=== PATIENT | female | born 1935 | race Caucasian/White ===

== ENCOUNTER 2016-09-02 11:28 | Inpatient (IN) | payer OTHER ==
[~2016-09-02] VITALS: Ht 154.9 cm; Wt 76.2 kg
[2016-09-02 11:55] VITALS: BP 199/100
[2016-09-02 12:19] LABS: HEMATOCRIT 33.9 % (37.0-47.0); HEMOGLOBIN 11.1 gm/dL (12.0-15.0); MCH 26.9 pg (26.0-34.0); MCHC 32.9 g/dL (28.0-37.0); MCV 81.6 fL (80.0-100.0); RBC 4.15 mil/uL (4.20-5.00); RDW 15.6 % (10.5-14.5)
[2016-09-02 12:42] LABS: ALBUMIN 3.4 g/dL (3.4-5.0); CALCIUM 9.1 mg/dL (8.5-10.1); CREATININE 1.7 mg/dL (0.6-1.0); TOTAL BILIRUBIN 1.4 mg/dL (<0.1-1.0); TOTAL PROTEIN 7.2 g/dL (6.4-8.2)
[2016-09-02] MEDS ORDERED: HYDROXYZINE HCL25 M1 PO (12:57)
[2016-09-02] MEDS ORDERED: LEVOTHYROXIN0.075 MG PO (12:57)
[2016-09-02] MEDS ORDERED: ATENOLOL 50MG T50 M1 PO (12:57)
[2016-09-02] MEDS ORDERED: CHLORZOXAZONE500 MG PO (12:58)
[2016-09-02] MEDS ORDERED: FUROSEMIDE 20 M20 MG PO (12:59)
[2016-09-02 13:15] VITALS: BP 176/86; BP 181/73
[2016-09-02 13:19] LABS: POTASSIUM 3.5 mmol/L (3.5-5.1)
[2016-09-02 15:55] VITALS: BP 168/80; BP 203/97
[2016-09-02 17:45] VITALS: BP 181/73
[2016-09-02 18:27] LABS: CALCIUM 9.2 mg/dL (8.5-10.1); CREATININE 1.7 mg/dL (0.6-1.0); POTASSIUM 3.5 mmol/L (3.5-5.1)
[2016-09-02 18:29] LABS: ALBUMIN 3.5 g/dL (3.4-5.0); MAGNESIUM 1.5 mg/dL (1.8-2.4); PHOSPHORUS 4.1 mg/dL (2.5-4.9)
[2016-09-02 19:20] VITALS: BP 179/82
[2016-09-02 23:32] VITALS: BP 210/100
[2016-09-03 02:25] VITALS: BP 182/72
[2016-09-03 03:47] LABS: ALBUMIN 3.4 g/dL (3.4-5.0); CALCIUM 9.1 mg/dL (8.5-10.1); CREATININE 1.7 mg/dL (0.6-1.0); PHOSPHORUS 4.2 mg/dL (2.5-4.9)
[2016-09-03 03:51] LABS: POTASSIUM 2.9 mmol/L (3.5-5.1)
[2016-09-03 04:50] VITALS: BP 174/77
[2016-09-03 08:45] VITALS: BP 115/57
[2016-09-03 08:55] LABS: ALBUMIN 3.7 g/dL (3.4-5.0); CALCIUM 9.6 mg/dL (8.5-10.1); CREATININE 1.8 mg/dL (0.6-1.0); PHOSPHORUS 4.4 mg/dL (2.5-4.9); POTASSIUM 3.2 mmol/L (3.5-5.1)
[2016-09-03 12:15] VITALS: BP 154/86
[2016-09-03 16:05] VITALS: BP 151/61
[2016-09-03 19:43] VITALS: BP 143/70
[2016-09-04 03:58] LABS: ALBUMIN 3.2 g/dL (3.4-5.0); CALCIUM 8.7 mg/dL (8.5-10.1); CREATININE 2.2 mg/dL (0.6-1.0); PHOSPHORUS 5.3 mg/dL (2.5-4.9); POTASSIUM 3.2 mmol/L (3.5-5.1)
[2016-09-04 04:00] LABS: MAGNESIUM 1.6 mg/dL (1.8-2.4); POTASSIUM 3.3 mmol/L (3.5-5.1)
[2016-09-04 04:37] VITALS: BP 117/64
[2016-09-04 07:50] VITALS: BP 146/92
[2016-09-04 11:47] LABS: MAGNESIUM 1.8 mg/dL (1.8-2.4)
[2016-09-04 12:15] VITALS: BP 120/64
[2016-09-04 16:45] VITALS: BP 148/78
[2016-09-04 19:59] VITALS: BP 144/70
[2016-09-05 04:04] VITALS: BP 140/72
[2016-09-05 05:37] LABS: ALBUMIN 3.2 g/dL (3.4-5.0); CALCIUM 8.7 mg/dL (8.5-10.1); CREATININE 2.3 mg/dL (0.6-1.0); PHOSPHORUS 5.9 mg/dL (2.5-4.9); POTASSIUM 3.4 mmol/L (3.5-5.1)
[2016-09-05 07:40] VITALS: BP 118/83
[2016-09-05 11:05] VITALS: BP 106/52
[2016-09-05 16:00] VITALS: BP 135/57
[2016-09-05 20:41] VITALS: BP 152/75
[2016-09-06] VITALS (12 sets, daily range): BP systolic 124–160; BP diastolic 52–106
[2016-09-06 03:46] LABS: ALBUMIN 3.1 g/dL (3.4-5.0); CREATININE 1.7 mg/dL (0.6-1.0); PHOSPHORUS 4.8 mg/dL (2.5-4.9); POTASSIUM 4.2 mmol/L (3.5-5.1)
[2016-09-06] MEDS ORDERED: BYSTOLIC 5 MG5 M1 PO (07:16)
[2016-09-06] MEDS ORDERED: ALDACTONE25 MG PO (07:17)
[2016-09-06] MEDS ORDERED: AMLODIPINE BESY10 MG PO (07:17)
[2016-09-06] MEDS ORDERED: COZAAR 50 MG TA50 M1 PO (07:17)
[2016-09-07 03:35] VITALS: BP 143/57
[2016-09-07] MEDS ORDERED: CARVEDILOL25 MG PO (07:42)
[2016-09-07 07:55] VITALS: BP 157/80
[2016-09-07 08:03] LABS: ALBUMIN 3.5 g/dL (3.4-5.0); CALCIUM 9.1 mg/dL (8.5-10.1); CREATININE 1.6 mg/dL (0.6-1.0); PHOSPHORUS 4.7 mg/dL (2.5-4.9); POTASSIUM 4.5 mmol/L (3.5-5.1)
[2016-09-07 09:05] VITALS: BP 157/80
== END 2016-09-07 10:25 | disposition home or self-care (01) | DRG 286 ==
LOC: 2N 11:28
PROVIDERS: Hospitalist; Internal Medicine Cardiovascular Disease; Nurse Practitioner Adult Health
PROC: 4A023N8 Measurement of Cardiac Sampling and Pressure, Bilateral, Percutaneous Approach (ICD-10-PCS; principal; 2016-09-06)
PROC: B2111ZZ Fluoroscopy of Multiple Coronary Arteries using Low Osmolar Contrast (ICD-10-PCS; principal; 2016-09-06)
DX: I13.0 Hypertensive heart and chronic kidney disease with heart failure and stage 1 through stage 4 chronic kidney disease, or unspecified chronic kidney disease (principal); I50.21 Acute systolic (congestive) heart failure; N17.9 Acute kidney failure, unspecified; I42.9 Cardiomyopathy, unspecified; E03.9 Hypothyroidism, unspecified; N18.9 Chronic kidney disease, unspecified; E87.6 Hypokalemia; Z79.899 Other long term (current) drug therapy; Z88.1 Allergy status to other antibiotic agents; Z88.2 Allergy status to sulfonamides; Z87.891 Personal history of nicotine dependence
CPT/HCPCS: 10081; 10797

== ENCOUNTER → 2019-07-31 | Outpatient (CLI) | payer OTHER ==
[~2019-07-31] MED LIST: ALDACTONE25 MG PO; AMLODIPINE BESY10 MG PO; ATENOLOL 50MG T50 M1 PO; BYSTOLIC 5 MG5 M1 PO; CARVEDILOL25 MG PO; CHLORZOXAZONE500 MG PO; COZAAR 50 MG TA50 M1 PO; FUROSEMIDE 20 M20 MG PO; HYDROXYZINE HCL25 M1 PO; LEVOTHYROXIN0.075 MG PO
== END ==
LOC: SJCVCIMAG 12:44
PROVIDERS: ATTEND Internal Medicine Cardiovascular Disease
DX: I08.1 Rheumatic disorders of both mitral and tricuspid valves (principal); I44.7 Left bundle-branch block, unspecified; R94.31 Abnormal electrocardiogram [ECG] [EKG]; I13.0 Hypertensive heart and chronic kidney disease with heart failure and stage 1 through stage 4 chronic kidney disease, or unspecified chronic kidney disease; I50.9 Heart failure, unspecified; N18.3 Chronic kidney disease, stage 3 (moderate); I25.10 Atherosclerotic heart disease of native coronary artery without angina pectoris; I42.9 Cardiomyopathy, unspecified; E78.00 Pure hypercholesterolemia, unspecified; Z79.899 Other long term (current) drug therapy

== ENCOUNTER → 2020-02-19 | Outpatient (CLI) | payer OTHER | LOC: SJCVC 13:24 | PROVIDERS: ATTEND Internal Medicine Cardiovascular Disease | DX: R94.31 Abnormal electrocardiogram [ECG] [EKG] (principal); I44.7 Left bundle-branch block, unspecified; I42.9 Cardiomyopathy, unspecified; E78.00 Pure hypercholesterolemia, unspecified; I13.0 Hypertensive heart and chronic kidney disease with heart failure and stage 1 through stage 4 chronic kidney disease, or unspecified chronic kidney disease; I50.21 Acute systolic (congestive) heart failure; N18.30 Chronic kidney disease, stage 3 unspecified; M19.90 Unspecified osteoarthritis, unspecified site; I25.5 Ischemic cardiomyopathy; Z79.899 Other long term (current) drug therapy; Z88.2 Allergy status to sulfonamides; Z88.1 Allergy status to other antibiotic agents ==

== ENCOUNTER → 2020-10-01 | Outpatient (CLI) | payer OTHER | LOC: SJCVC 12:35 | PROVIDERS: ATTEND Internal Medicine Cardiovascular Disease | DX: R94.31 Abnormal electrocardiogram [ECG] [EKG] (principal); I44.7 Left bundle-branch block, unspecified; I42.9 Cardiomyopathy, unspecified; E78.00 Pure hypercholesterolemia, unspecified; I50.21 Acute systolic (congestive) heart failure; I11.0 Hypertensive heart disease with heart failure; Z79.899 Other long term (current) drug therapy; Z88.2 Allergy status to sulfonamides; Z88.1 Allergy status to other antibiotic agents ==